=== PATIENT | female | born 1960 | race Caucasian/White ===

== ENCOUNTER 2017-01-20 14:34 | Inpatient (IN) | payer MEDICARE, OTHER ==
--- NOTE | ~2017-01-20 | CN ---
Consultation Report [facility] [address] [place]. [address] NAME: LILLI COVINGTON : 58 STATUS : ADM IN [facility]#: [id number] AGE: 56 ADM/REG DATE : 01/20/17 MR#: [id number] REPORT SERV DATE: 01/22/17 DICTATED BY: DATE: REPORT STATUS : Draft TRANSCRIBED BY: MODL DATE: 01/22/17 NEUROLOGY CONSULTATION DATE OF CONSULTATION: 01/22/2017 REASON FOR CONSULT: Encephalopathy. HISTORY OF PRESENT ILLNESS: This is a 56-year-old female who presented to [facility] as a transfer from outside hospital on 01/20/2017. The patient was initially noted to have elevated potassium level, was status post dialysis, as well as the patient initially was noted to be unresponsive. The patient on 01/21/2017 was noted to have improved level of arousal, but was noted to have waxing and waning level of interaction with nursing staff. The patient otherwise denies any focal weakness, numbness, or dysarthria. No reports of recent illness, fever, chills. Nausea, vomiting were otherwise reported. The patient does complain of shortness of breath, which was the reason for the patient's evaluation at outside hospital. Otherwise, no recent change in medication was noted. The patient denies IV drug abuse in the past. The patient does have a history of end-stage renal disease, and is on hemodialysis. REVIEW OF SYSTEMS: Negative except for those mentioned in the HPI. The patient does have history of end-stage renal disease, COPD, type 2 diabetes, obesity, CHF as well as hypertension with the patient noted to have current tobacco usage, but denies alcohol usage and denies IV drug usage. MEDICATIONS: The patient's home medication consist of amlodipine, Lyrica, vitamin D, Tylenol, carvedilol, calcium acetate, citalopram as well as Tamera-Mathieu. ALLERGIES: THE PATIENT REPORTS ALLERGY TO PENICILLIN. FAMILY HISTORY: No significant reports of family history was noted by the patient. PHYSICAL EXAMINATION: VITAL SIGNS: T-max of 98.6, heart rate of 65 to 140, respirations of 10 to 27, and blood pressure of 100 to 186 over 53 to 83. GENERAL: The patient is well developed, well nourished, in no acute distress. CARDIOVASCULAR: Mildly tachycardic. No carotid bruits were otherwise auscultated PULMONARY: Clear to auscultation bilaterally. NEUROLOGICAL: Generally, the patient is alert, oriented to person, place, not to year or month. Decreased attention span was noted at the time of evaluation. The patient was noted to have a minimal verbal response, was otherwise noted to follow most of the simple commands and some of two-step commands. At the time of evaluation, mild dysarthria was noted. No clear aphasia was discerned during the evaluation. Cranial nerves 2 through 12, pupils equal, round, and reactive to light. Horizontal eye movement was noted to be intact with intact [id number] response with equal symmetrical facial sensation, symmetrical facial Consultation Report [place] [id number] [facility] [place]. [address] NAME: LILLI COVINGTON : 58 STATUS : ADM IN [facility]#: [id number] AGE: 56 ADM/REG DATE : 01/20/17 MR#: [id number] REPORT SERV DATE: 01/22/17 DICTATED BY: DATE: REPORT STATUS : Draft TRANSCRIBED BY: MODL DATE: 01/22/17 expression. Midline tongue. Normal palatal movement was noted with mild decreased hearing in bilateral ears. The patient does have 4/5 bilateral upper and lower extremity strength at the time of evaluation, with question of mild asterixis and myoclonus at the time of evaluation. Gait and cerebellar examination was unable to be evaluated secondary to confusion as well as difficulty following complex commands. LABORATORY DATA: The patient's laboratory studies demonstrated white blood cell count of 12.7, hemoglobin of 12.6, hematocrit of 40.1, platelet count of 237. Chemistry panel: Sodium 141, potassium 3.9, chloride 102, bicarb of 28, BUN of 34, creatinine of 5.31, glucose of 98, calcium of 8.6, magnesium of 2.2. Serum TSH was 0.901. The patient was noted to have serum free T4 of 0.56, hemoglobin A1c of 10.7. No neuroimaging was otherwise available at the time of evaluation. IMPRESSION: Encephalopathy with waxing and waning in level of interaction with others. The patient is able to follow most of the simple commands, but was noted to have dysarthria as well as disorientation, decreased attention span, and difficulties with complex commands. The patient was noted to have heart valve vegetation in the mitral valve extending to the atrium on echocardiogram concerning for vegetation versus thrombus. We will obtain blood cultures x2. We will check MRI of the brain without contrast as well as other laboratory studies. We will start the patient on aspirin 325 mg p.o. daily and we will obtain Cardiology consults. We will defer antibiotics trial and management to Critical Care. RECOMMENDATION: 1. Aspirin 325 mg p.o. daily. 2. Blood cultures x2. 3. Ammonia, vitamin B12, folate, procalcitonin level with morning labs. 4. MRI of the brain without contrast for altered mental status. 5. Cardiology consult. 6. Consider antibiotics. CCH/MODL Olu Lamar MD / [id number] CC: Luke Becker DO
--- NOTE | ~2017-01-20 | CN ---
Consultation Report [facility] [address] [place]. [address] NAME: LILLI COVINGTON : 58 STATUS : ADM IN PAT#: [id number] AGE: 56 ADM/REG DATE : 01/20/17 MR#: [id number] REPORT SERV DATE: 01/21/17 DICTATED BY: JAY HANSEN DATE: 01/20/17 REPORT STATUS : Draft TRANSCRIBED BY: MODL DATE: 01/20/17 NEPHROLOGY CONSULTATION NOTE DATE OF CONSULTATION: HISTORY OF PRESENT ILLNESS: Ms. Covington is a 56-year-old, white female, with end-stage renal disease, from [place], [place], Dr. Vincent's patient from the [facility] there, presented to [facility] Emergency Room with a potassium of 9.2, complaining of shortness of breath and abnormal EKG. She was placed on CPAP and later intubated and transferred here for urgent hemodialysis. PAST MEDICAL HISTORY: Hypertension, secondary hyperparathyroid disease, anemia of chronic kidney disease, chronic diarrhea, diabetes mellitus type 2 with multiorgan involvement, left arm AV fistula, COPD on home O2 as best I can tell. She has had a left big toe amputation in the past. I am not sure if this was infection, trauma, or peripheral vascular disease. She is intubated cannot give me social history, family history. ALLERGIES: SHE IS ALLERGIC TO PENICILLIN PER RECORDS. MEDICATIONS: At home are obtained from a clinic pack. They listed amlodipine, Lyrica, vitamin D, acetaminophen, carvedilol, calcium acetate, citalopram, and Tamera-Mathieu. PHYSICAL EXAMINATION: GENERAL: The patient is seen on dialysis, intubated, ventilated, and sedated. VITAL SIGNS: Blood pressure 100/54, heart rate 116, respirations 14, and afebrile. Oral intubation, sedated. LUNGS: Clear bilaterally. CARDIOVASCULAR EXAM: Without murmur, gallops, or rubs. ABDOMEN: Soft, benign. Bowel sounds are present. EXTREMITIES: 1+ edema diffusely, missing tip of her left big toe. Nor skin rash. No open ulcers, no lymphadenopathy appreciated. Otherwise stable vital signs at present. LABS: Pending here today. The lab work done at [facility] shows a potassium of 9.2 at 11 o'clock and 8.4 at 1 p.m. Blood sugar was 365 there, BUN 106, creatinine 9.2 with a hemoglobin 11.3. Blood gas revealed a pH of 7.16, pCO2 67, pO2 49, 36% FiO2. ASSESSMENT: 1. End-stage renal disease, presented with volume overload. Suspect patient noncompliant with the last potassium at the clinic was 7.8, but cannot rule out access malfunction or medication problems. High blood sugars can also cause high potassium, and she may not be taking her insulin correctly. I cannot ask these questions as she is sedated and intubated. May well need a fistulogram for the high potassium evaluation to see if she is actually under dialyzed as her BUN is over 100, creatinine was 9 and had 6 kg of volume overload. Consultation Report [address] [place]. [address] NAME: LILLI COVINGTON : 58 STATUS : ADM IN [facility]#: [id number] AGE: 56 ADM/REG DATE : 01/20/17 MR#: [id number] REPORT SERV DATE: 01/21/17 DICTATED BY: JAY HANSEN DATE: 01/20/17 REPORT STATUS : Draft TRANSCRIBED BY: COMFORT DATE: 01/20/17 2. Diabetes mellitus type 2. Poorly controlled blood sugar over 300, probably dietary non discretion. 3. Chronic obstructive pulmonary disease on home O2. CO2 retention, volume overloaded, and history of tobacco use in the past. Maybe still currently smoking. 4. Worry about cardiomyopathy. She has multiple risk factors. 5. Anemia of chronic kidney disease. 6. Hypertension. 7. Peripheral vascular disease, left big toe missing. PLAN: Urgent hemodialysis. The patient is actually on dialysis currently through a left upper arm AV fistula. Revisit high potassium in a.m. and plan to repeat dialysis tomorrow. Control the diabetes, educate as far as diet, and we will evaluate access as needed. Thank you for consultation. MIKAEL/COMFORT Jay Hansen M.D. / [id number] CC: DO ALEXANDER Duong MD
--- NOTE | ~2017-01-20 | CN ---
Consultation Report [facility] [address] [place]. [address] NAME: LILLI COVINGTON : 58 STATUS : ADM IN [facility]#: [id number] AGE: 56 ADM/REG DATE : 01/20/17 MR#: [id number] REPORT SERV DATE: 01/23/17 DICTATED BY: BALJIT MURCIA DATE: 01/23/17 REPORT STATUS : Draft TRANSCRIBED BY: MODL DATE: 01/23/17 INFECTIOUS DISEASE CONSULT DATE OF CONSULTATION: REFERRING PHYSICIAN: Dr. Esparza. REASON FOR CONSULT: Possible endocarditis. HISTORY OF PRESENT ILLNESS: 56-year-old lady with history of COPD, on home oxygen; end-stage renal disease, on hemodialysis through a left arm AV fistula; diabetes; hypertension; CHF, who was transferred from [facility] for severe hyperkalemia with EKG changes, hypercapnia, hypoxemia, and acidosis. The patient is unable to provide any information. The did not answer two different phone numbers, so the only thing I got is from the chart. Apparently, she presented to the ER in [place], [place] for dyspnea. No other details are available. She was found to have a potassium of 9.2. ABGs with pH of 7.16, pCO2 of 67, PO2 of 49. Otherwise, the lactic acid was 0.6. BNP was 2300. Other labs; WBC 12, hemoglobin 11, platelets 260. ALT 64, AST 52. Procalcitonin not elevated. She was initially given Solu-Medrol. Was given medications for hyperkalemia, but eventually it was decided to transfer her to [facility], so she was intubated prior to that. She was brought to [facility]. Here PICC line was put. She was dialyzed on 01/20/2017, 01/21/2017, and 01/22/2017. Yesterday, she was extubated. An echocardiogram was done because she had atrial fibrillation with rapid ventricular rate and that showed 1 x 0.5 cm mobile vegetation on the posterior leaflet of the mitral valve. With that finding, blood cultures were collected and she was started on vancomycin and cefepime. Today, an ID consult was requested. Echocardiogram showed a good left ventricular ejection fraction, just trivial mitral regurgitation. The patient is unable to provide any information, but since being extubated she has been awake, but apparently she does not talk much and her mental status waxes and wanes. She was seen by Neurology. MRI was attempted, but could not be done. Ammonia is high at 67 and a sudden EEG was done as well. Chest x-ray has been showing some increased interstitial markings may be enlarged heart and opacity at the left base. She has been afebrile except for one time a low temp of 100, blood pressure has been running high. She is on 2 L of oxygen. According to the nurse, she has no vomiting, no bowel movement, does not really make urine, no coughing or very little coughing. She is not really cooperative. In order to get medications, an NG tube was put in because she failed a swallowing study. PAST MEDICAL HISTORY: As I mentioned above plus the chart mentions prior amputation of left first toe, some form of ear surgery, and chronic diarrhea. SOCIAL HISTORY: Again, according to the chart, she is . She is a smoker. ALLERGIES: PENICILLIN IS LISTED. Consultation Report [address] [place]. [address] NAME: LILLI COVINGTON : 58 STATUS : ADM IN [facility]#: [id number] AGE: 56 ADM/REG DATE : 01/20/17 MR#: [id number] REPORT SERV DATE: 01/23/17 DICTATED BY: BALJIT MURCIA DATE: 01/23/17 REPORT STATUS : Draft TRANSCRIBED BY: COMFORT DATE: 01/23/17 MEDICATIONS ON ADMISSION: I did not see any antibiotics listed. PHYSICAL EXAMINATION: GENERAL: On exam, she is awake. She follows commands. She could tell me her name. She would not open her mouth to examine it. HEENT: Sclerae seem to be white. LUNGS: Poor inspiratory effort, but no wheezes, rhonchi, or rales. HEART: Regular rhythm with a soft systolic murmur at both sternal borders. ABDOMEN: Compressible. Seems nontender to palpation. SKIN: With mild erythema over her buttocks, but no wound. She has some scars over the left inner buttock and towards the mid upper spine area or back area. She moves all extremities. She has tiny scabs over her lower legs and arms. She has a left arm AV fistula, which looks ectatic. She has a right arm PICC line. LAB WORK: I called [facility] and they tell me no cultures were done there. Blood cultures done here yesterday are negative so far. WBC 8. Procalcitonin 0.12. Ammonia 67. ASSESSMENT AND PLAN: 1. Mitral valve vegetation, described as mobile and 1 x 0.5 cm. 2. She is encephalopathic and she has high ammonia. She is unable to help with the information. I tried to call the , but no answer. 3. She was admitted with hyperkalemia, hypercapnia, acidosis, and hypoxemia. 4. End-stage renal disease, on hemodialysis. 5. Per chart, she has a history of chronic obstructive pulmonary disease, on home oxygen. The question for ID is whether she has endocarditis. On one hand, she clearly is at risk for it being a dialysis patient. She has all these small scabs all over her extremities of unclear etiology. On the other hand, she is really afebrile. Procalcitonin is not elevated. Blood cultures done yesterday so far negative. At this point, we will follow up cultures. She was started on empiric vancomycin and cefepime. We will try to reach out to the family again later. She is being investigated for the encephalopathy. PC/MODL Baljit Murcia M.D. / [id number] CC: Luke Becker DO
--- NOTE | ~2017-01-20 | DS ---
Discharge Summary [facility] [address] [facility] [place]. [address] NAME: LILLI COVINGTON : 58 STATUS : DIS IN PAT#: [id number] AGE: 56 ADM/REG DATE : 01/20/17 MR#: [id number] REPORT SERV DATE: 01/30/17 DICTATED BY: AMANDO CRISTINA DATE: 01/29/17 REPORT STATUS : Draft TRANSCRIBED BY: MODL DATE: 01/29/17 ADMISSION DATE: 01/20/2017 DISCHARGE DATE: 01/29/2017 DISCHARGE DIAGNOSES: Include: 1. Acute hypoxic respiratory failure, resolved. 2. Hyperkalemia, resolved, in the setting of end-stage renal disease with volume overload and pulmonary edema. 3. Mitral valve vegetation. 4. Diabetes type 2, uncontrolled. Most recent hemoglobin A1c 10.7. 5. Seizure, status epilepticus. 6. One episode of atrial fibrillation, now resumed sinus rhythm. 7. Hypertension. 8. Encephalopathy, metabolic, that has resolved. 9. Hyponatremia, resolved. DISCHARGE MEDICATIONS: Aspirin 81 mg daily, Coreg 12.5 mg p.o. twice a day, Vimpat 100 mg p.o. twice a day, Tamera-Mathieu tablet daily, Dilantin 100 mg three times a day, Tylenol 500 mg p.r.n., Norvasc 10 mg daily, Lyrica 75 mg daily, Celexa 20 mg daily, vitamin D 70478 units weekly, PhosLo 667 mg daily, Zofran p.r.n., and Lantus insulin 20 units subcutaneously twice a day. HISTORY OF PRESENT ILLNESS: This is a pleasant 56-year-old white female, who was originally transferred from [facility] Emergency Room as the patient was found to be severely hyperkalemic, acidotic, with respiratory failure. Please see the initial H and P of Dr. Luke Becker as the patient was admitted to the [facility] here at [facility]. Please also see the interim discharge summary of grain trader, Dr. Evangelina Esparza, as this discharge summary will cover the dates of 01/25/2017 until 01/29/2017. CONSULTANTS DURING THIS ADMISSION: Included Neurology, Dr. Rosalia Lamar; Cardiology, Dr. Kimani Rivera; Infectious Disease, Dr. Baljit Davey. PROCEDURES AND IMAGING DURING THIS ADMISSION: Include a CT of the brain on 01/23/2017 showing [id number] diffuse cerebral involutional changes, suspected small old infarct, left basal ganglia. An echocardiogram performed on 01/22/2017 showing an ejection fraction of 55%. Mild LVH. Normal right ventricular chamber size and systolic function. No significant valvular regurgitation or stenosis, but a hypermobile echodensity, posterior mitral leaflet P2 scallop consistent with valvular vegetation. A transesophageal echocardiogram performed on 01/28/2017 showing ejection fraction of 55%. A 1.5-cm independently mobile echodensity seen on the posterior mitral anulus adjacent to the P2 and P3 segments, very echodense, possibly calcified, likely representing an old chronic finding. No significant valvular regurgitation and intact interatrial septum. Discharge Summary [address] [place]. [address] NAME: LILLI COVINGTON : 58 STATUS : DIS IN [facility]#: [id number] AGE: 56 ADM/REG DATE : 01/20/17 MR#: [id number] REPORT SERV DATE: 01/30/17 DICTATED BY: AMANDO CRISTINA DATE: 01/29/17 REPORT STATUS : Draft TRANSCRIBED BY: COMFORT DATE: 01/29/17 An MRI of the brain performed on 01/23/2017 showing no acute CVA or other acute intracranial pathology. Old CVA, left superior posterior parietal watershed zone. Moderate diffuse cerebral involutional changes. HOSPITAL COURSE: Beginning on 01/25/2017, the patient had been transferred out of the intensive care unit. I began seeing her on 01/25/2017. She was feeling some better and her mental status had began to improve. She still had an NG tube with tube feeding, but given the improvement in her encephalopathy and mental status, her NG tube was removed and her diet was slowly advanced, which she tolerated well. She continued on her IV antibiotics. She was seen by Speech Therapy, Physical Therapy, and Occupational Therapy. Nephrology continued her dialysis treatments on Friday, Friday, and Friday. A determination was made to perform the above-described SERVANDO to further assess the mitral valve, which was done, and after discussions with Cardiology and Infectious Disease, they decided on a course of outpatient IV antibiotics for 5 weeks with echocardiogram at week 6 to reassess the mitral valve. She was originally planned to go to rehab at discharge, but improved and requested herself to go home with home health and home physical therapy. This was set up for the patient and currently will be discharging home with home health, physical therapy, and occupational therapy to resume her outpatient dialysis treatments on Friday, Friday, and Friday. Given her one episode of AFib during this admission, I discussed the case with Dr. Rivera. He does not wish to pursue anticoagulation other than an 81-mg aspirin daily. She will follow up with Cardiology in 6 weeks in the [facility]. The patient was discharged with the above medications and followup plan. She is in agreement with this plan going forward. Please note, greater than 30 minutes were spent on this discharge for medication teaching, followup planning, and further disposition. I appreciate all the consultants' help on this patient's hospital admission as well. DICTATED BY: Amando Cristina NP CSC/MODL Amando Cristina NP / [id number] CC: Barrett Napier MD
--- NOTE | ~2017-01-20 | IDS ---
Interim Discharge Summary [facility] [address] [place]. [address] NAME: LILLI COVINGTON : 58 STATUS : ADM IN [facility]#: [id number] AGE: 56 ADM/REG DATE : 01/20/17 MR#: [id number] REPORT SERV DATE: 01/24/17 DICTATED BY: EAVNGELINA GROVE DATE: 01/24/17 REPORT STATUS : Draft TRANSCRIBED BY: MODL DATE: 01/24/17 ADMISSION DATE: 01/20/2017 DISCHARGE DATE: BRIEF HISTORY OF PRESENT ILLNESS: Ms. Covington is a 56-year-old lady with end-stage renal disease from [place], who is followed by Dr. Bardales at the [facility] up there. She presented to the emergency room at [facility] complaining of shortness of breath and was found to have an abnormal EKG and a potassium level of 9.2. She was ultimately intubated and transferred to our facility for higher level of care. Please see Dr. Becker's detailed H and P from the date of her admission as well as Dr. Maciel's consult note from the same date. She was dialyzed through her existing left arm fistula and was dialyzed again the next morning as well. She was extubated later in the afternoon after correction of her volume overload and hyperkalemia. Her pulmonary edema was likely the source of her respiratory failure and she had significant improvement in her respiratory status and tolerated extubation after 2 dialysis sessions with this considerable volume removal. Other problems during this admission have included poorly-controlled diabetes mellitus requiring insulin therapy, atrial fibrillation requiring amiodarone, anemia, which is a chronic issue. Other past medical history includes hypertension, peripheral vascular disease, major depression, chronic neuropathy secondary to uncontrolled diabetes, GERD and COPD requiring home oxygen. She was found on 01/22/2017 to have a vegetation on the P2 subsegment of the mitral valve and was seen by Dr. Davey as well as Dr. Rivera. She was started on broad-spectrum antibiotics and cultures were collected. Of note, her procalcitonin level has been unremarkable and cultures have been negative to date. She also developed what was initially felt to be encephalopathy secondary to possible septic emboli to her brain; however, after being seen by Dr. Lamar and undergoing MRI of the brain, there was no evidence of embolic phenomenon. She also had an EEG, which was markedly abnormal and she was loaded with antiepileptics by Dr. Lamar who continues to follow her. She was started on scheduled Ativan until satisfactory loading with antiepileptic drugs could be completed. She has not had anymore recurrence of her paroxysmal atrial fibrillation. Cardiology feels this is likely secondary to treatment of her metabolic disturbances and infection. She was transitioned from IV amiodarone to p.o. on the . She is scheduled for lumbar puncture this afternoon as part of ongoing workup for encephalopathy, and she will be moving to a monitored bed for ongoing care and physical therapy. She has morning labs ordered for tomorrow, is a full code, and her is functioning as her medical decision maker, his name is David Covington, cell phone #[phone]. Hospitalist navigator has been notified of her transfer. Please call with questions. DAWN/COMFORT Evangelina Grove MD / [id number] Interim Discharge Summary [address] [address] NAME: LILLI COVINGTON : 58 STATUS : ADM IN [facility]#: [id number] AGE: 56 ADM/REG DATE : 01/20/17 MR#: [id number] REPORT SERV DATE: 01/24/17 DICTATED BY: EVANGELINA GROVE DATE: 01/24/17 REPORT STATUS : Draft TRANSCRIBED BY: COMFORT DATE: 01/24/17 CC: Luke Becker DO
--- NOTE | ~2017-01-20 | CN ---
Consultation Report [facility] [address] [place]. [address] NAME: LILLI COVINGTON : 58 STATUS : ADM IN [facility]#: [id number] AGE: 56 ADM/REG DATE : 01/20/17 MR#: [id number] REPORT SERV DATE: 01/23/17 DICTATED BY: BOGDAN RIVERA DATE: 01/22/17 REPORT STATUS : Draft TRANSCRIBED BY: MODL DATE: 01/22/17 CARDIOLOGY CONSULT NOTE DATE OF CONSULTATION: 01/22/2017 REASON FOR CONSULTATION: Altered mental status, atrial fibrillation with rapid ventricular response, and mitral valve vegetation on transthoracic echocardiogram. HISTORY OF PRESENT ILLNESS: Ms. Covington is a 56-year-old woman with a possible previous history of congestive heart failure, not otherwise specified. The patient apparently has no other known cardiovascular history, although she is currently oriented only to person and is unable to provide a useful history. The patient apparently was transferred from an outside facility. She is on chronic hemodialysis due to end-stage renal disease. She receives her nephrology care in [place], [place]. The patient apparently was brought to an emergency room in [place] with altered mental status. The patient was found to be in hypoxic, hypercarbic respiratory failure. She required endotracheal intubation for airway protection and stabilization prior to transfer to [facility]. The patient was found to be severely hyperkalemic, with a serum potassium initially of approximately 9. The patient was transferred to [facility] for emergency hemodialysis and higher level of care. At this time, the patient has been extubated. The patient remains quite confused, and has waxing and waning mental status according to the nursing staff. At this time, the patient is oriented only to person. She is unable to name the city she is presently in, nor the year. The patient is however able to follow simple commands. PAST MEDICAL HISTORY: 1. End-stage renal disease, on hemodialysis. 2. COPD. 3. Type 2 diabetes. 4. History of obesity. 5. History of tobacco abuse. 6. Hypertension. 7. Congestive heart failure, not otherwise specified. PAST SURGICAL HISTORY: 1. 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 2. Ear surgery. 3. AV fistula in left arm. FAMILY HISTORY: Unknown. SOCIAL HISTORY: The patient has a heavy smoking history. She continues to smoke Consultation Report [facility] [address] [place]. [address] NAME: LILLI COVINGTON : 58 STATUS : ADM IN PAT#: [id number] AGE: 56 ADM/REG DATE : 01/20/17 MR#: [id number] REPORT SERV DATE: 01/23/17 DICTATED BY: BOGDAN RIVERA DATE: 01/22/17 REPORT STATUS : Draft TRANSCRIBED BY: MODL DATE: 01/22/17 approximately 2 packs per day according to medical records. The patient apparently has previously denied alcohol or drug use. The patient is reportedly . ALLERGIES: THE PATIENT HAS NO KNOWN MEDICATION ALLERGIES. HOME MEDICATIONS: This list may be incomplete. 1. Acetaminophen 500 mg p.o. as needed for pain/fever. 2. Norvasc 10 mg p.o. daily. 3. Tamera-Mathieu vitamins-schedule unknown. 4. PhosLo 667 mg tablets-schedule unknown. 5. Carvedilol 12.5 mg p.o. twice daily. 6. Celexa 20 mg p.o. daily. 7. Vitamin D 50,000 units weekly or as prescribed. 8. Lyrica 75 mg-schedule unknown. REVIEW OF SYSTEMS: A meaningful review of systems could not be performed. PHYSICAL EXAMINATION: VITAL SIGNS: Temperature is 97.0 degrees Fahrenheit, maximum temperature is 100.4 degrees Fahrenheit, blood pressure is 182/75 mmHg, heart rate is 74 beats per minute and regular, respirations 15, and oxygen saturation is 94% on a 2 L nasal cannula. CONSTITUTIONAL: The patient is a chronically ill-appearing, 56-year-old woman who appears considerably older than her stated age. The patient appears disheveled. EYES: PERRL, EOMI, clear conjunctiva. HEAD/MNT: Poor dentition. Otherwise normal cranium, atraumatic with moist mucous membranes and normal hard and soft palate. NECK: Supple with no obvious thyromegaly or lymphadenopathy CARDIOVASCULAR: There is a regular rhythm with a normal S1 and a physiologically split second heart sound. There is a grade 1/6 early peaking systolic murmur noted at the right upper sternal border consistent with a benign flow murmur. The jugular venous pressure is difficult to estimate, but currently appears to be grossly normal. PULMONARY: There is globally decreased air movement. There are rales noted in the lung bases bilaterally which extend approximately jail up the lung ching. There is a prolonged expiratory phase. No dullness to percussion is noted at this time. ABDOMINAL: Soft, non-tender, non-distended with no hepatosplenomegaly noted. EXTREMITIES: There are no clear stigmata of endocarditis. No clubbing, cyanosis, or edema. The patient is noted to have an amputation of her right great toe. MUSCULOSKELETAL: Grossly normal strength and range of motion in all extremities INTEGUMENTARY: The patient has a decubitus ulcer in the sacral location which is currently dressed. There are multiple apparently excoriated lesions, with multiple crusted lesions noted over a vein in the patient's right arm. While these may be due to lab draws, it is somewhat suspicious for track younger. Again, there are no obvious Osler nodes, Janeway lesions, or other stigmata of infective endocarditis. NEURO/PSYC: The patient is moving all extremities, though she has generalized fatigue, and Consultation Report [address] [address] NAME: LILLI COVINGTON : 58 STATUS : ADM IN [facility]#: [id number] AGE: 56 ADM/REG DATE : 01/20/17 MR#: [id number] REPORT SERV DATE: 01/23/17 DICTATED BY: BOGDAN RIVERA DATE: 01/22/17 REPORT STATUS : Draft TRANSCRIBED BY: COMFORT DATE: 01/22/17 appears somewhat ataxic. No other focal neurologic deficits are noted on brief exam. DIAGNOSTIC DATA: 12-lead EKG: The patient's 12-lead EKG from 1756 hours on 01/21/2017 shows atrial fibrillation with a rapid ventricular response and a ventricular rate of 128 beats per minute. There is T-wave peaking and voltage criteria for left ventricular hypertrophy. Otherwise, unremarkable tracing. Telemetry: The patient's foot drill operator currently shows normal sinus rhythm with a rate of approximately 75 beats per minute. CHEST X-RAY: The patient's admission chest x-ray shows moderate pulmonary edema with small left-sided pleural effusion. LABORATORY DATA: The patient's admission labs apparently had a potassium level of around 9 with pH of approximately 7.15, pCO2 of around 70, and PaO2 also around 70. Most recent labs show a white blood cell count of 12.7, hemoglobin 12.6, hematocrit 40, and platelets 237. Electrolytes show a sodium of 141, potassium 3.9, chloride is 102, CO2 is 28, BUN 34, creatinine is 5.3, glucose is 98, phosphorus is 6.9, and magnesium 2.2. TSH is 0.91. TRANSTHORACIC ECHOCARDIOGRAM: A transthoracic echocardiogram performed 01/22/2017 shows normal left ventricular systolic function with a left ventricular ejection fraction estimated at 55%. There is mild concentric left ventricular hypertrophy reported. Right ventricular function and chamber size appeared normal. A catheter is noted in the right atrium. There is a hypermobile echodensity extending from the posterior mitral leaflet from the P2 scallop and into the left atrium consistent with a valvular vegetation. There is no significant mitral regurgitation associated with this. No other significant valvular heart disease is reported. ASSESSMENT AND PLAN: 1. 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 The patient has been started on vancomycin. Consider infectious disease consult to assist in diagnosis and treatment. The patient has no evidence of AV block at this time on foot drill operator or her 12-lead EKG. It is not clear that transesophageal echocardiography would add much to the patient's workup. The vegetation appears of moderate size, and is approximately 1 cm x 0.5 cm. Would recommend antimicrobial therapy as per the recommendations of the Infectious Disease Service with no further cardiac workup at this time, and unless there is clear evidence of embolic phenomenon on an MRI scan of the brain. 2. Atrial fibrillation: This is most likely precipitated by the patient's acute respiratory failure. The patient is now in normal sinus rhythm. She is on an IV amiodarone drip, which we will continue until the patient is able to take oral medications. We will consider oral anticoagulation depending on the results of the patient's MRI scan of the brain. We will discuss with the primary service. 3. Volume overload: The patient has normal left ventricular systolic function. We will continue volume removal as tolerated with hemodialysis. If the patient's mental status Consultation Report [place] [id number] [facility] [address] NAME: LILLI COVINGTON : 58 STATUS : ADM IN [facility]#: [id number] AGE: 56 ADM/REG DATE : 01/20/17 MR#: [id number] REPORT SERV DATE: 01/23/17 DICTATED BY: BOGDAN RIVERA DATE: 01/22/17 REPORT STATUS : Draft TRANSCRIBED BY: COMFORT DATE: 01/22/17 improves, we will try to determine whether the patient has had a previous cardiovascular workup. 4. Altered mental status: An MRI scan of the brain is pending. Should the patient have evidence of embolic stroke, it may be necessary to pursue transesophageal echocardiography to further characterize the mitral valve lesion. We will make further recommendations following review of the patient's MRI scan. Thank you for allowing me to participate in the care of Ms. Covington. The Cardiology Service will continue to follow the patient during this hospitalization. JC/COMFORT Bogdan Rivera MD / [id number] CC: Luek Becker DO
--- NOTE | ~2017-01-20 | EEG ---
Electroencephalogram [place] [address] [place]. [address] NAME: LILLI COVINGTON : 58 STATUS : ADM IN PAT#: [id number] AGE: 56 ADM/REG DATE : 01/20/17 MR#: [id number] REPORT SERV DATE: 01/23/17 DICTATED BY: DATE: REPORT STATUS : Draft TRANSCRIBED BY: MODL DATE: 01/23/17 NEUROLOGY EEG REPORT. CLINICAL INDICATION: Encephalopathy. DESCRIPTION: This EEG was performed using 10/20 electrode placement system. During the EEG study, patient was noted to have persistent epileptiform discharges throughout the EEG study with muscle artifact concerning for possible status epilepticus. Photic stimulation was performed. No clear driving response was seen. Hyperventilation was not performed secondary to the patient's medical condition and mental status. The patient remains in the alert and awake state during the entire EEG evaluation. INTERPRETATION: This EEG study obtained during awake state may be considered abnormal secondary to persistent epileptiform discharges seen throughout the EEG study, concerning for status epilepticus. Clinical correlation is recommended. [facility]/MODCali Olu Lamar MD / [id number] CC: Luke Becker DO
--- NOTE | ~2017-01-20 | TEE ---
Transesophageal Echocardiogram [facility] [address]. [address] NAME: LILLI COVINGTON : 58 STATUS : ADM IN PAT#: [id number] AGE: 56 ADM/REG DATE : 01/20/17 MR#: [id number] REPORT SERV DATE: 01/29/17 DICTATED BY: KEEGAN IQBAL DATE: 01/28/17 REPORT STATUS : Draft TRANSCRIBED BY: MODCali DATE: 01/28/17 REQUESTING PROVIDER: Mariusz Escobar M.D. INDICATION: Abnormal echocardiogram with mitral valve vegetation. SERVANDO requested for further evaluation. Informed consent was obtained, signed, and on the chart prior to proceeding. A time-out was performed. Sedation was per Anesthesia, and esophageal intubation was without difficulty. TECH: TD. The overall quality of the study was good. FINDINGS: VALVES: 1. The mitral valve morphology was normal. The mitral leaflets appear normal and fully mobile. There was no mitral regurgitation. There is a 1.5 cm independently mobile echodensity seen with primary attachment at the mitral anulus adjacent to the P2-P3 segments. Again, this appears to be a very echodense and likely calcified, possibly old - chronic. 2. The aortic valve morphology was normal and trileaflet. The aortic leaflets were fully mobile. There were no vegetations. There was no aortic regurgitation. 3. The pulmonic valve morphology was normal. There were no vegetations. Pulmonic leaflets were fully mobile. There was no pulmonic regurgitation. 4. The tricuspid valve morphology was normal with fully mobile leaflets. There were no vegetations. There was trace tricuspid regurgitation. CHAMBERS: 1. The left atrium was grossly normal in size. There was no mass or thrombus seen. 2. The left ventricle was normal in size. The visually estimated LVEF of 55%. There were no regional wall motion abnormalities. 3. The right atrium was mildly enlarged. Superior and inferior vena cava appeared normal. There was no mass or thrombus seen. 4. The right ventricle appears grossly in normal size and systolic function. OTHER: The interatrial septum was examined with multiple angulations and appears intact by visual inspection with no evidence of interatrial shunt seen by color Doppler. There was no pericardial effusion. The descending thoracic aorta was not adequately visualized. COMPLICATIONS: None. CONCLUSION: 1. 1.5 CM INDEPENDENTLY MOBILE ECHODENSITY SEEN ON THE POSTERIOR MITRAL ANULUS ADJACENT TO THE P2-P3 SEGMENTS. THIS IS VERY ECHODENSE AND POSSIBLY CALCIFIED LIKELY REPRESENTING AN OLD-CHRONIC FINDING. 2. NO SIGNIFICANT VALVULAR REGURGITATION. 3. INTACT INTERATRIAL SEPTUM. Transesophageal Echocardiogram [address] [place]. [address] NAME: LILLI COVINGTON : 58 STATUS : ADM IN [facility]#: [id number] AGE: 56 ADM/REG DATE : 01/20/17 MR#: [id number] REPORT SERV DATE: 01/29/17 DICTATED BY: KEEGAN IQBAL. DATE: 01/28/17 REPORT STATUS : Draft TRANSCRIBED BY: MODCali DATE: 01/28/17 ALAYNA/COMFORT Keegan Iqbal M.D. / [id number] CC: Barrett Napier MD
--- NOTE | ~2017-01-20 | EEG ---
Electroencephalogram [place] [id number] [facility] [place] [address] NAME: LILLI COVINGTON : 58 STATUS : ADM IN PAT#: [id number] AGE: 56 ADM/REG DATE : 01/20/17 MR#: [id number] REPORT SERV DATE: 01/24/17 DICTATED BY: DATE: REPORT STATUS : Draft TRANSCRIBED BY: MODL DATE: 01/24/17 CLINICAL INDICATION: Status epilepticus. DESCRIPTION: This EEG was performed using 10/20 electrode placement system. During the EEG study, symmetric background activity was noted with predominant occipital rhythm of roughly 7 hertz. The patient was noted to have episodes of triphasic waves as well as phase reversals seen mostly in the T3 as well as T6 electrodes. The patient achieved drowsy state. Photic stimulation was performed. No clear driving response was seen. Hyperventilation was not performed secondary to the patient's underlying medical condition. The patient's EEG today appeared to have improved compared to the EEG performed on 01/23/2017 which shows the predominantly electrographic seizures. No clear electrographic seizure was noted during today's EEG. INTERPRETATION: This EEG study was obtained during awake and drowsy state may be considered abnormal secondary to presence of frequent triphasic wave as well as the phase reversal in T3 and T6 electrodes in bilateral temporal area concerning for possible underlying structure abnormality versus seizure focus. No clear electrographic seizure was seen during today's EEG evaluation. Clinical correlation is recommended. [facility]/COMFORT Olu Lamar MD / [id number] CC: Luke Becker DO
--- NOTE | ~2017-01-20 | HP ---
History And Physical [place] [address] [place]. [address] NAME: LILLI COVINGTON : 58 STATUS : ADM IN [facility]#: [id number] AGE: 56 ADM/REG DATE : 01/20/17 MR#: [id number] REPORT SERV DATE: 01/20/17 DICTATED BY: LUKE BECKER DATE: 01/20/17 REPORT STATUS : Draft TRANSCRIBED BY: MODL DATE: 01/20/17 DATE OF ADMISSION: 01/20/2017 HISTORY OF PRESENT ILLNESS: 56-year-old white female, transferred from [facility] Emergency Room in [place], [place], for ongoing higher level of care. The patient was seen there today because of shortness of breath. She was found to have hyperkalemia with a potassium of 9.2 with EKG changes showing peaked T-waves and a widened QRS. She also was found to be acidotic with an abnormal arterial blood gas with a pH of 7.16, pCO2 of 67, and pO2 of 49. She was placed on BiPAP for her respiratory status, and she was given insulin, sodium bicarb, calcium, albuterol, and Kayexalate to treat her potassium. They called us to transfer the patient to get dialysis. After questioning about the status of her airway, the ER doctor did decide, after talking with him, that she needed to be intubated for transport. She was intubated with what looks like etomidate and vecuronium. She also was given some aerosol treatments and Solu-Medrol in the ER. Apparently, she does have a diagnosis of COPD and is a heavy smoker as much as two packs per day per the . She is on oxygen 2 L/minute and supposed to be on that all the time, but she is not always compliant. She is also very hypertensive in their emergency room with a blood pressure as high as 227/94 from my review of their records. REVIEW OF SYSTEMS: Unable to be obtained. PAST MEDICAL HISTORY: End-stage renal disease, COPD, type 2 diabetes, obesity, CHF, tobacco abuse, and hypertension. PAST SURGICAL HISTORY: Toe surgery, ear surgery, and left upper arm fistula. ALLERGIES: PENICILLIN. HOME MEDICATIONS: Amlodipine, Lyrica, vitamin D, Tylenol, carvedilol, calcium acetate, citalopram, and Tamera-Mathieu. SOCIAL HISTORY: No alcohol, but does smoke heavily and is . FAMILY HISTORY: Unable to be obtained. LABORATORY STUDIES: Outside labs that are pertinent: White blood cell count 12.6, hemoglobin 11.3, and platelets 258. Sodium 130, potassium 9.2, chloride 94, glucose 425, BUN 106, creatinine 9.6. Albumin 3.7, AST 52, ALT 64, alkaline phosphatase is 219. BNP 2300. Lactate 0.6. Repeat potassium was 8.4. PHYSICAL EXAMINATION: VITAL SIGNS: Per nursing flow sheet. GENERAL: No acute distress. NEURO: Sedated. Pupils equal. ENT: Normocephalic, atraumatic. A 7.[address]. History And Physical [address] [address] NAME: LILLI COVINGTON : 58 STATUS : ADM IN [facility]#: [id number] AGE: 56 ADM/REG DATE : 01/20/17 MR#: [id number] REPORT SERV DATE: 01/20/17 DICTATED BY: LUKE BECKER DATE: 01/20/17 REPORT STATUS : Draft TRANSCRIBED BY: COMFORT DATE: 01/20/17 NECK: Trachea midline. HEART: Regular rate and rhythm. No murmurs. LUNGS: Clear anteriorly, currently on the ventilator with settings reviewed. GI: Obese, soft, nontender, nondistended. EXTREMITIES: No significant edema. : Walker catheter is in place. ASSESSMENT: 1. Acute hypoxic respiratory failure. 2. Hyperkalemia with EKG changes. 3. Volume overload. 4. Acute pulmonary edema. 5. End-stage renal disease. 6. Chronic obstructive pulmonary disease. 7. Type 2 diabetes. 8. Congestive heart failure. 9. Tobacco abuse. PLAN: 1. Neuro: We will let sedation wear off, but we can put her on Precedex as needed for sedation. We will leave off narcotics and paralytics for now. 2. Cardiac: The patient does have a history of heart failure. Current blood pressure is mildly hypertensive, but she was really hypertensive at the outside facility. We will get updated home medication list and reconcile her cardiac medicines along with her other medicines as appropriate. Cardiac markers also will be checked and constant EKG monitoring will be done. We are also checking labs, particularly her potassium level which was causing EKG arrhythmia. 3. Pulmonary: Currently on the ventilator. Initially at a set rate of 10 and she was only breathing 10 breaths per minute. This is the set rate that the patient apparently came over on. I increased her rate and got ABG immediately before the patient had time to equilibrate and it did show that the patient was acidotic with a low pH and an elevated pCO2. We will leave her at a respiratory rate of 18 for now and get another blood gas in one hour. We will get a chest x-ray to confirm ET tube placement and also check the severity of the pulmonary edema. We are getting bronchodilators to administer to the patient as well. 4. Gastrointestinal: Patient will be n.p.o. for now. Have OG-tube in place and get a KUB. 5. Genitourinary: The patient is going to be getting dialysis and we will also check her underlying electrolytes as well. 6. Endocrine: The patient is diabetic, so we will put patient on a level 2 sliding scale for now and get glucose checks every 6 hours. 7. Infection/lymph: No signs of active infection at this point. We will hold off on any antibiotics. Procalcitonin is pending. 8. Skin: Small ulcer on her backside which is being noted and the appropriate wound care to be done. 35 minutes of critical care time. History And Physical [address] [address] NAME: LILLI COVINGTON : 58 STATUS : ADM IN [facility]#: [id number] AGE: 56 ADM/REG DATE : 01/20/17 MR#: [id number] REPORT SERV DATE: 01/20/17 DICTATED BY: LUKE BECKER DATE: 01/20/17 REPORT STATUS : Draft TRANSCRIBED BY: MODL DATE: 01/20/17 CEP/MODCali Luke Becker DO / [id number] CC: Luke Becker DO
[2017-01-20 14:58] LABS: INSTRUMENT SERIAL # 35151; PCO2 (CO2 TENSION) 69 MMHG (35-45); pH 7.14 (7.37-7.43)
[2017-01-20 14:59] LABS: ALLENS TEST Pos; BE (BASE EXCESS) -6.8 MEQ/L (0 +/- 2.5); CARBOXYHEMOGLOBIN 2.1 % (0-3); HCO3 (ACTUAL BICARBONATE) 23.1 MEQ/L (23-27); HEMOBLOGIN CONTENT 11.9 G/DL (12-16); METHEMOGLOBIN 0.5 % (0-3); O2 CONTENT 16.7 VOL% (18-24); PO2 (O2 TENSION) 231 MMHG (79-93); SAMPLE Arterial
[2017-01-20 16:30] LABS: A/G RATIO 0.9 (0.7-1.9); ALBUMIN 3.6 G/DL (3.5-5.0); ALKALINE PHOSPHATASE 232 U/L (45-117); CALCIUM, SERUM 7.8 MG/DL (8.5-10.4); CHLORIDE, SERUM 95 MMOL/L (96-112); CO2 (CARBON DIOXIDE) 23 MMOL/L (24-34); CPK 171 U/L (0-200); FREE T4 0.56 NG/DL (0.76-1.46); GFR AFRICAN AMERICAN 4 ML/MIN (>=60); GFR NON AFRICAN AMERICAN 4 ML/MIN (>=60); GLOBULIN 4.1 G/DL (2.5-4.1); GLUCOSE, SERUM 288 MG/DL (60-99); PHOSPHORUS, SERUM 8.2 MG/DL (2.5-4.5); SGOT(AST) 55 U/L (5-40); SGPT(ALT) 62 U/L (5-65); SODIUM, SERUM 132 MMOL/L (135-148); TOTAL BILIRUBIN 0.4 MG/DL (0-1.2); TOTAL PROTEIN 7.7 G/DL (6.0-8.5); TROPONIN I 0.02 NG/ML (<0.05)
[2017-01-20 16:31] LABS: BUN (BLOOD UREA NITROGEN) 108 MG/DL (6-23); CK-MB 4.4 NG/ML; POTASSIUM, SERUM 7.9 MMOL/L (3.5-5.3)
[2017-01-20 17:20] LABS: PROCALCITONIN <0.05 ng/mL (<0.5)
[2017-01-20 17:29] LABS: INSTRUMENT SERIAL # 8083
[2017-01-20 17:30] LABS: ALLENS TEST Pos; BE (BASE EXCESS) -1.6 MEQ/L (0 +/- 2.5); CARBOXYHEMOGLOBIN 0.5 % (0-3); HCO3 (ACTUAL BICARBONATE) 25.4 MEQ/L (23-27); METHEMOGLOBIN 0.3 % (0-3); MODE CMV; O2 CONTENT 17.1 VOL% (18-24); PCO2 (CO2 TENSION) 53 MMHG (35-45); PO2 (O2 TENSION) 233 MMHG (79-93); SAMPLE Arterial; TIDAL VOLUME 500 ML
[2017-01-20] MEDS ORDERED: ACET500CAP PO (18:24)
[2017-01-20] MEDS ORDERED: NORV10 PO (18:24)
[2017-01-20] MEDS ORDERED: RENA-VITE PO (18:24)
[2017-01-20] MEDS ORDERED: LYRICA75 PO (18:24)
[2017-01-20] MEDS ORDERED: VITD PO (18:25)
[2017-01-20] MEDS ORDERED: *UNABLE3 (18:25)
[2017-01-20] MEDS ORDERED: CELEXA20 PO (18:25)
[2017-01-20] MEDS ORDERED: COREG12 PO (18:25)
[2017-01-20] MEDS ORDERED: PHOSLO PO (18:25)
[2017-01-21 00:54] LABS: CALCIUM, SERUM 8.2 MG/DL (8.5-10.4); CHLORIDE, SERUM 99 MMOL/L (96-112); SODIUM, SERUM 136 MMOL/L (135-148)
[2017-01-21 00:55] LABS: BUN (BLOOD UREA NITROGEN) 45 MG/DL (6-23); CO2 (CARBON DIOXIDE) 29 MMOL/L (24-34); CREATININE 5.61 MG/DL (0.55-1.02); GFR AFRICAN AMERICAN 9 ML/MIN (>=60); GFR NON AFRICAN AMERICAN 8 ML/MIN (>=60); GLUCOSE, SERUM 414 MG/DL (60-99); PHOSPHORUS, SERUM 6.2 MG/DL (2.5-4.5); POTASSIUM, SERUM 6.2 MMOL/L (3.5-5.3)
[2017-01-21 03:52] LABS: ALLENS TEST Pos; BE (BASE EXCESS) 1.6 MEQ/L (0 +/- 2.5); CARBOXYHEMOGLOBIN 0.6 % (0-3); HCO3 (ACTUAL BICARBONATE) 28.3 MEQ/L (23-27); HEMOBLOGIN CONTENT 11.9 G/DL (12-16); INSTRUMENT SERIAL # 35151; METHEMOGLOBIN 0.2 % (0-3); MODE CMV; O2 CONTENT 15.6 VOL% (18-24); OPERATOR ID 19993; PCO2 (CO2 TENSION) 55 MMHG (35-45); PO2 (O2 TENSION) 77 MMHG (79-93); SAMPLE Arterial; TIDAL VOLUME 500 ML; pH 7.33 (7.37-7.43)
[2017-01-21 05:17] LABS: BASOPHILS 0.2 %; BASOPHILS ABSOLUTE 0.02 10/3/uL (0.0-0.16); EOSINOPHILS 0.2 %; EOSINOPHILS ABSOLUTE 0.02 10/3/uL (0.0-0.53); HEMOGLOBIN 11.7 g/dL (12.0-16.0); IMMATURE GRANULOCYTES 0.4 %; IMMATURE GRANULOCYTES ABSOLUTE 0.05 10/3/uL (0.0-0.11); MEAN CORPUS HGB CONC 31.6 g/dL (32.0-36.0); MEAN CORPUSCULAR HEMOGLOB 28.1 pg (26.0-34.0); MEAN CORPUSCULAR VOLUME 88.9 fL (80-100); MEAN PLATELET VOLUME 10.8 fL (9.2-13.0); MONOCYTES 9.3 %; MONOCYTES ABSOLUTE 1.06 10/3/uL (0.21-1.20); NEUTROPHILS 75.9 %; NEUTROPHILS ABSOLUTE 8.68 10/3/uL (2.02-8.40); PLATELET COUNT 229 10/3/uL (150-400); RBC DISTRIBUTION WIDTH 16.4 % (12.0-16.0); RED CELL COUNT 4.16 10/6/uL (4.0-5.6); WHITE BLOOD CELLS 11.4 10/3/uL (4.5-10.5)
[2017-01-21 05:18] LABS: MANUAL DIFF NO %
[2017-01-21 05:45] LABS: A/G RATIO 0.8 (0.7-1.9); ALBUMIN 3.2 G/DL (3.5-5.0); CHLORIDE, SERUM 104 MMOL/L (96-112); CO2 (CARBON DIOXIDE) 25 MMOL/L (24-34); GLOBULIN 3.9 G/DL (2.5-4.1); PHOSPHORUS, SERUM 5.9 MG/DL (2.5-4.5); PREALBUMIN 29.3 MG/DL (17.0-43.0); SGOT(AST) 50 U/L (5-40); SGPT(ALT) 64 U/L (5-65); TOTAL BILIRUBIN 0.3 MG/DL (0-1.2); TOTAL PROTEIN 7.1 G/DL (6.0-8.5)
[2017-01-21 05:46] LABS: ALKALINE PHOSPHATASE 216 U/L (45-117); BUN (BLOOD UREA NITROGEN) 49 MG/DL (6-23); CREATININE 6.35 MG/DL (0.55-1.02); GFR AFRICAN AMERICAN 8 ML/MIN (>=60); GFR NON AFRICAN AMERICAN 7 ML/MIN (>=60); GLUCOSE, SERUM 202 MG/DL (60-99); POTASSIUM, SERUM 4.5 MMOL/L (3.5-5.3); SODIUM, SERUM 144 MMOL/L (135-148)
[2017-01-21] MEDS ORDERED: EMLA CREAM TOP (10:00)
[2017-01-21] MEDS ORDERED: LANTUS (10:00)
[2017-01-21] MEDS ORDERED: ZOFRAN ODT4 MG PO (10:01)
[2017-01-21] MEDS ORDERED: ASPIRIN (10:01)
[2017-01-22 04:35] LABS: BASOPHILS 0.2 %; BASOPHILS ABSOLUTE 0.03 10/3/uL (0.0-0.16); EOSINOPHILS 2.6 %; EOSINOPHILS ABSOLUTE 0.33 10/3/uL (0.0-0.53); HEMATOCRIT 40.1 % (36.0-48.0); HEMOGLOBIN 12.6 g/dL (12.0-16.0); IMMATURE GRANULOCYTES 0.3 %; IMMATURE GRANULOCYTES ABSOLUTE 0.04 10/3/uL (0.0-0.11); LYMPHOCYTES 15.7 %; MEAN CORPUS HGB CONC 31.4 g/dL (32.0-36.0); MEAN CORPUSCULAR HEMOGLOB 28.1 pg (26.0-34.0); MEAN CORPUSCULAR VOLUME 89.5 fL (80-100); MEAN PLATELET VOLUME 10.6 fL (9.2-13.0); MONOCYTES 10.1 %; MONOCYTES ABSOLUTE 1.28 10/3/uL (0.21-1.20); NEUTROPHILS 71.1 %; NEUTROPHILS ABSOLUTE 9.02 10/3/uL (2.02-8.40); PLATELET COUNT 237 10/3/uL (150-400); RBC DISTRIBUTION WIDTH 16.9 % (12.0-16.0); RED CELL COUNT 4.48 10/6/uL (4.0-5.6); WHITE BLOOD CELLS 12.7 10/3/uL (4.5-10.5)
[2017-01-22 04:41] LABS: MANUAL DIFF NO %
[2017-01-22 04:54] LABS: BUN (BLOOD UREA NITROGEN) 34 MG/DL (6-23); CALCIUM, SERUM 8.6 MG/DL (8.5-10.4); CHLORIDE, SERUM 102 MMOL/L (96-112); CO2 (CARBON DIOXIDE) 28 MMOL/L (24-34); CREATININE 5.31 MG/DL (0.55-1.02); GFR AFRICAN AMERICAN 10 ML/MIN (>=60); GFR NON AFRICAN AMERICAN 8 ML/MIN (>=60); GLUCOSE, SERUM 98 MG/DL (60-99); PHOSPHORUS, SERUM 6.9 MG/DL (2.5-4.5); POTASSIUM, SERUM 3.9 MMOL/L (3.5-5.3); SODIUM, SERUM 141 MMOL/L (135-148); ULTRASENSITIVE TSH 0.901 MCIU/ML (0.358-3.740)
[2017-01-23 04:01] LABS: BASOPHILS 0.2 %; BASOPHILS ABSOLUTE 0.02 10/3/uL (0.0-0.16); EOSINOPHILS 2.8 %; EOSINOPHILS ABSOLUTE 0.25 10/3/uL (0.0-0.53); HEMATOCRIT 39.9 % (36.0-48.0); HEMOGLOBIN 12.6 g/dL (12.0-16.0); IMMATURE GRANULOCYTES 0.5 %; IMMATURE GRANULOCYTES ABSOLUTE 0.04 10/3/uL (0.0-0.11); LYMPHOCYTES 17.7 %; LYMPHOCYTES ABSOLUTE 1.56 10/3/uL (0.67-4.30); MEAN CORPUS HGB CONC 31.6 g/dL (32.0-36.0); MEAN CORPUSCULAR HEMOGLOB 28.4 pg (26.0-34.0); MEAN CORPUSCULAR VOLUME 89.9 fL (80-100); MEAN PLATELET VOLUME 10.9 fL (9.2-13.0); MONOCYTES 10.3 %; MONOCYTES ABSOLUTE 0.91 10/3/uL (0.21-1.20); NEUTROPHILS 68.5 %; NEUTROPHILS ABSOLUTE 6.04 10/3/uL (2.02-8.40); PLATELET COUNT 204 10/3/uL (150-400); RBC DISTRIBUTION WIDTH 16.9 % (12.0-16.0); RED CELL COUNT 4.44 10/6/uL (4.0-5.6); WHITE BLOOD CELLS 8.8 10/3/uL (4.5-10.5)
[2017-01-23 04:02] LABS: MANUAL DIFF NO %
[2017-01-23 04:53] LABS: ALBUMIN 3.3 G/DL (3.5-5.0); CALCIUM, SERUM 8.6 MG/DL (8.5-10.4); CHLORIDE, SERUM 102 MMOL/L (96-112); CO2 (CARBON DIOXIDE) 25 MMOL/L (24-34); CREATININE 4.96 MG/DL (0.55-1.02); GFR AFRICAN AMERICAN 10 ML/MIN (>=60); GFR NON AFRICAN AMERICAN 9 ML/MIN (>=60); POTASSIUM, SERUM 4.2 MMOL/L (3.5-5.3); SODIUM, SERUM 139 MMOL/L (135-148)
[2017-01-23 04:56] LABS: BUN (BLOOD UREA NITROGEN) 28 MG/DL (6-23); FOLATE 32.9 NG/ML (>5.2); GLUCOSE, SERUM 262 MG/DL (60-99); PHOSPHORUS, SERUM 5.5 MG/DL (2.5-4.5)
[2017-01-23 05:06] LABS: PROCALCITONIN 0.12 ng/mL (<0.5)
[2017-01-24 04:11] LABS: BASOPHILS 0.2 %; BASOPHILS ABSOLUTE 0.02 10/3/uL (0.0-0.16); EOSINOPHILS ABSOLUTE 0.32 10/3/uL (0.0-0.53); HEMATOCRIT 38.2 % (36.0-48.0); HEMOGLOBIN 12.2 g/dL (12.0-16.0); IMMATURE GRANULOCYTES 1.2 %; LYMPHOCYTES 14.3 %; LYMPHOCYTES ABSOLUTE 1.16 10/3/uL (0.67-4.30); MEAN CORPUS HGB CONC 31.9 g/dL (32.0-36.0); MEAN CORPUSCULAR HEMOGLOB 28.2 pg (26.0-34.0); MEAN CORPUSCULAR VOLUME 88.2 fL (80-100); MEAN PLATELET VOLUME 10.5 fL (9.2-13.0); MONOCYTES 15.3 %; MONOCYTES ABSOLUTE 1.24 10/3/uL (0.21-1.20); NEUTROPHILS ABSOLUTE 5.25 10/3/uL (2.02-8.40); PLATELET COUNT 214 10/3/uL (150-400); RBC DISTRIBUTION WIDTH 16.7 % (12.0-16.0); RED CELL COUNT 4.33 10/6/uL (4.0-5.6); WHITE BLOOD CELLS 8.1 10/3/uL (4.5-10.5)
[2017-01-24 04:12] LABS: MANUAL DIFF NO %
[2017-01-24 04:38] LABS: A/G RATIO 0.8 (0.7-1.9); ALBUMIN 3.3 G/DL (3.5-5.0); CALCIUM, SERUM 8.4 MG/DL (8.5-10.4); CHLORIDE, SERUM 103 MMOL/L (96-112); CO2 (CARBON DIOXIDE) 21 MMOL/L (24-34); GLOBULIN 4.2 G/DL (2.5-4.1); GLUCOSE, SERUM 266 MG/DL (60-99); POTASSIUM, SERUM 3.8 MMOL/L (3.5-5.3); SGOT(AST) 29 U/L (5-40); SGPT(ALT) 40 U/L (5-65); SODIUM, SERUM 140 MMOL/L (135-148); TOTAL BILIRUBIN 0.4 MG/DL (0-1.2); TOTAL PROTEIN 7.5 G/DL (6.0-8.5)
[2017-01-24 04:39] LABS: ALKALINE PHOSPHATASE 181 U/L (45-117); BUN (BLOOD UREA NITROGEN) 44 MG/DL (6-23); CREATININE 7.76 MG/DL (0.55-1.02); DIRECT BILIRUBIN < 0.1 MG/DL (0.0-0.4); GFR AFRICAN AMERICAN 6 ML/MIN (>=60); GFR NON AFRICAN AMERICAN 5 ML/MIN (>=60); INDIRECT BILIRUBIN(NOT ORDER) 0.3 MG/DL (0.1-0.9); PHOSPHORUS, SERUM 7.6 MG/DL (2.5-4.5)
[2017-01-24 16:35] LABS: GLUCOSE CSF 147 MG/DL (45-70); TOTAL PROTEIN, CSF 58.3 MG/DL (15-45)
[2017-01-24 17:02] LABS: CSF BASO 0 % (NO REF RANGE); CSF EOS 0 % (0-1); CSF LYMPH (NOT ORD) 13 % (28-96); CSF MONO 87 % (16-56); CSF SEGS (NOT ORD) 0 % (0-7); CSF WBC (NOT ORD) 1 /uL (0-10)
[2017-01-24 17:06] LABS: CSF COLOR (NOT ORD) COLORLESS (COLORLESS); CSF RBC (NOT ORD) 6 MM3 (NO REFERENCE)
[2017-01-24 17:07] LABS: CSF APPEARANCE (NOT ORD) CLEAR (CLEAR); CSF XANTHROCHROMIA NEG (NEG)
[2017-01-25 06:12] LABS: BASOPHILS 0.5 %; BASOPHILS ABSOLUTE 0.05 10/3/uL (0.0-0.16); EOSINOPHILS 4.2 %; EOSINOPHILS ABSOLUTE 0.39 10/3/uL (0.0-0.53); HEMOGLOBIN 12.9 g/dL (12.0-16.0); IMMATURE GRANULOCYTES 1.3 %; IMMATURE GRANULOCYTES ABSOLUTE 0.12 10/3/uL (0.0-0.11); LYMPHOCYTES 16.4 %; LYMPHOCYTES ABSOLUTE 1.52 10/3/uL (0.67-4.30); MANUAL DIFF NO %; MEAN CORPUS HGB CONC 33.1 g/dL (32.0-36.0); MEAN CORPUSCULAR HEMOGLOB 28.5 pg (26.0-34.0); MEAN CORPUSCULAR VOLUME 86.3 fL (80-100); MEAN PLATELET VOLUME 10.4 fL (9.2-13.0); MONOCYTES 15.9 %; MONOCYTES ABSOLUTE 1.48 10/3/uL (0.21-1.20); NEUTROPHILS 61.7 %; NEUTROPHILS ABSOLUTE 5.72 10/3/uL (2.02-8.40); PLATELET COUNT 238 10/3/uL (150-400); RBC DISTRIBUTION WIDTH 17.2 % (12.0-16.0); RED CELL COUNT 4.52 10/6/uL (4.0-5.6); WHITE BLOOD CELLS 9.3 10/3/uL (4.5-10.5)
[2017-01-25 06:28] LABS: ALBUMIN 3.5 G/DL (3.5-5.0); BUN (BLOOD UREA NITROGEN) 33 MG/DL (6-23); CALCIUM, SERUM 9.1 MG/DL (8.5-10.4); CHLORIDE, SERUM 103 MMOL/L (96-112); CO2 (CARBON DIOXIDE) 23 MMOL/L (24-34); CREATININE 6.44 MG/DL (0.55-1.02); GFR AFRICAN AMERICAN 8 ML/MIN (>=60); GFR NON AFRICAN AMERICAN 7 ML/MIN (>=60); GLUCOSE, SERUM 167 MG/DL (60-99); PHOSPHORUS, SERUM 6.7 MG/DL (2.5-4.5); POTASSIUM, SERUM 4.3 MMOL/L (3.5-5.3); SODIUM, SERUM 139 MMOL/L (135-148)
[2017-01-25 06:42] LABS: DILANTIN (PHENYTOIN) 13.1 MCG/ML (10.0-20.0)
[2017-01-25 14:57] LABS: (1,3)-BETA-D-GLUCAN 160 pg/mL (()); (1,3)-BETA-D-GLUCAN INTERP Positive (())
[2017-01-26 06:34] LABS: BUN (BLOOD UREA NITROGEN) 45 MG/DL (6-23); CALCIUM, SERUM 8.7 MG/DL (8.5-10.4); CHLORIDE, SERUM 97 MMOL/L (96-112); CO2 (CARBON DIOXIDE) 22 MMOL/L (24-34); CREATININE 8.26 MG/DL (0.55-1.02); GFR AFRICAN AMERICAN 6 ML/MIN (>=60); GFR NON AFRICAN AMERICAN 5 ML/MIN (>=60); GLUCOSE, SERUM 116 MG/DL (60-99); POTASSIUM, SERUM 4.9 MMOL/L (3.5-5.3); SODIUM, SERUM 132 MMOL/L (135-148)
[2017-01-26 06:42] LABS: BASOPHILS 0.7 %; BASOPHILS ABSOLUTE 0.06 10/3/uL (0.0-0.16); EOSINOPHILS 5.5 %; EOSINOPHILS ABSOLUTE 0.44 10/3/uL (0.0-0.53); HEMATOCRIT 39.6 % (36.0-48.0); HEMOGLOBIN 13.2 g/dL (12.0-16.0); IMMATURE GRANULOCYTES 3.2 %; IMMATURE GRANULOCYTES ABSOLUTE 0.26 10/3/uL (0.0-0.11); LYMPHOCYTES 29.4 %; LYMPHOCYTES ABSOLUTE 2.36 10/3/uL (0.67-4.30); MEAN CORPUS HGB CONC 33.3 g/dL (32.0-36.0); MEAN CORPUSCULAR HEMOGLOB 28.4 pg (26.0-34.0); MEAN CORPUSCULAR VOLUME 85.3 fL (80-100); MEAN PLATELET VOLUME 10.3 fL (9.2-13.0); MONOCYTES 12.7 %; MONOCYTES ABSOLUTE 1.02 10/3/uL (0.21-1.20); NEUTROPHILS 48.5 %; PLATELET COUNT 223 10/3/uL (150-400); RBC DISTRIBUTION WIDTH 17.2 % (12.0-16.0); RED CELL COUNT 4.64 10/6/uL (4.0-5.6)
[2017-01-26 06:43] LABS: MANUAL DIFF NO %
[2017-01-27 09:53] LABS: ALBUMIN 2.9 G/DL (3.5-5.0); CHLORIDE, SERUM 93 MMOL/L (96-112); PHOSPHORUS, SERUM 7.3 MG/DL (2.5-4.5); POTASSIUM, SERUM 5.2 MMOL/L (3.5-5.3); SODIUM, SERUM 126 MMOL/L (135-148)
[2017-01-27 09:54] LABS: BUN (BLOOD UREA NITROGEN) 63 MG/DL (6-23); CALCIUM, SERUM 7.7 MG/DL (8.5-10.4); CO2 (CARBON DIOXIDE) 14 MMOL/L (24-34); CREATININE 9.99 MG/DL (0.55-1.02); GFR AFRICAN AMERICAN 4 ML/MIN (>=60); GFR NON AFRICAN AMERICAN 4 ML/MIN (>=60); GLUCOSE, SERUM 184 MG/DL (60-99)
[2017-01-27 10:51] LABS: THYROID PEROXIDASE AUTO AB 1.6 IU/mL (0.0-9.0)
[2017-01-27 10:54] LABS: BASOPHILS 0.3 %; BASOPHILS ABSOLUTE 0.02 10/3/uL (0.0-0.16); EOSINOPHILS 7.6 %; EOSINOPHILS ABSOLUTE 0.45 10/3/uL (0.0-0.53); HEMATOCRIT 33.1 % (36.0-48.0); IMMATURE GRANULOCYTES 3.5 %; IMMATURE GRANULOCYTES ABSOLUTE 0.21 10/3/uL (0.0-0.11); LYMPHOCYTES 27.4 %; LYMPHOCYTES ABSOLUTE 1.63 10/3/uL (0.67-4.30); MANUAL DIFF NO %; MEAN CORPUS HGB CONC 33.2 g/dL (32.0-36.0); MEAN CORPUSCULAR HEMOGLOB 27.9 pg (26.0-34.0); MEAN PLATELET VOLUME 10.1 fL (9.2-13.0); MONOCYTES 10.8 %; MONOCYTES ABSOLUTE 0.64 10/3/uL (0.21-1.20); NEUTROPHILS 50.4 %; NEUTROPHILS ABSOLUTE 2.99 10/3/uL (2.02-8.40); PLATELET COUNT 231 10/3/uL (150-400); RBC DISTRIBUTION WIDTH 16.6 % (12.0-16.0); RED CELL COUNT 3.94 10/6/uL (4.0-5.6); WHITE BLOOD CELLS 5.9 10/3/uL (4.5-10.5)
[2017-01-27 12:02] LABS: THYROGLOBULIN AUTO ANTIBODY <0.9 IU/mL (0.0-4.0)
[2017-01-27 16:05] LABS: BUN (BLOOD UREA NITROGEN) 29 MG/DL (6-23); CALCIUM, SERUM 8.5 MG/DL (8.5-10.4); CHLORIDE, SERUM 98 MMOL/L (96-112); CO2 (CARBON DIOXIDE) 24 MMOL/L (24-34); CREATININE 6.04 MG/DL (0.55-1.02); GFR AFRICAN AMERICAN 8 ML/MIN (>=60); GFR NON AFRICAN AMERICAN 7 ML/MIN (>=60); GLUCOSE, SERUM 172 MG/DL (60-99); POTASSIUM, SERUM 4.8 MMOL/L (3.5-5.3); SODIUM, SERUM 135 MMOL/L (135-148)
[2017-01-28 05:48] LABS: BASOPHILS 0.5 %; BASOPHILS ABSOLUTE 0.04 10/3/uL (0.0-0.16); EOSINOPHILS 4.7 %; EOSINOPHILS ABSOLUTE 0.36 10/3/uL (0.0-0.53); HEMOGLOBIN 12.4 g/dL (12.0-16.0); IMMATURE GRANULOCYTES 2.2 %; IMMATURE GRANULOCYTES ABSOLUTE 0.17 10/3/uL (0.0-0.11); LYMPHOCYTES 26.6 %; LYMPHOCYTES ABSOLUTE 2.02 10/3/uL (0.67-4.30); MEAN CORPUS HGB CONC 33.8 g/dL (32.0-36.0); MEAN CORPUSCULAR HEMOGLOB 28.6 pg (26.0-34.0); MEAN CORPUSCULAR VOLUME 84.6 fL (80-100); MEAN PLATELET VOLUME 10.1 fL (9.2-13.0); MONOCYTES 10.4 %; MONOCYTES ABSOLUTE 0.79 10/3/uL (0.21-1.20); NEUTROPHILS 55.6 %; PLATELET COUNT 262 10/3/uL (150-400); RBC DISTRIBUTION WIDTH 17.2 % (12.0-16.0); RED CELL COUNT 4.34 10/6/uL (4.0-5.6); WHITE BLOOD CELLS 7.6 10/3/uL (4.5-10.5)
[2017-01-28 05:57] LABS: CALCIUM, SERUM 8.1 MG/DL (8.5-10.4); CHLORIDE, SERUM 100 MMOL/L (96-112); CO2 (CARBON DIOXIDE) 22 MMOL/L (24-34); POTASSIUM, SERUM 5.2 MMOL/L (3.5-5.3); SODIUM, SERUM 135 MMOL/L (135-148)
[2017-01-28 05:58] LABS: BUN (BLOOD UREA NITROGEN) 45 MG/DL (6-23); CREATININE 7.59 MG/DL (0.55-1.02); GFR AFRICAN AMERICAN 6 ML/MIN (>=60); GFR NON AFRICAN AMERICAN 5 ML/MIN (>=60); GLUCOSE, SERUM 224 MG/DL (60-99)
[2017-01-28 06:07] LABS: HEMATOCRIT 36.7 % (36.0-48.0); MANUAL DIFF NO %
[2017-01-28] MEDS ORDERED: VIMPAT100 MG PO (15:23)
[2017-01-28] MEDS ORDERED: ASAB PO (15:23)
[2017-01-28] MEDS ORDERED: D100 PO (15:24)
[2017-01-28] MEDS ORDERED: LANTUS SC (15:26)
[2017-01-28 15:58] LABS: IGG INDEX 0.49 (0.25-0.75)
[2017-01-28 20:02] LABS: MYELIN BASIC PROTEIN 2.41 ng/mL (0.00-5.50)
[2017-01-29 09:00] LABS: BASOPHILS 0.4 %; BASOPHILS ABSOLUTE 0.03 10/3/uL (0.0-0.16); EOSINOPHILS 7.7 %; HEMATOCRIT 35.2 % (36.0-48.0); HEMOGLOBIN 11.8 g/dL (12.0-16.0); IMMATURE GRANULOCYTES 1.9 %; IMMATURE GRANULOCYTES ABSOLUTE 0.15 10/3/uL (0.0-0.11); LYMPHOCYTES ABSOLUTE 2.04 10/3/uL (0.67-4.30); MEAN CORPUS HGB CONC 33.5 g/dL (32.0-36.0); MEAN CORPUSCULAR HEMOGLOB 28.6 pg (26.0-34.0); MEAN CORPUSCULAR VOLUME 85.4 fL (80-100); MEAN PLATELET VOLUME 9.8 fL (9.2-13.0); MONOCYTES 13.3 %; MONOCYTES ABSOLUTE 1.04 10/3/uL (0.21-1.20); NEUTROPHILS 50.7 %; NEUTROPHILS ABSOLUTE 3.98 10/3/uL (2.02-8.40); PLATELET COUNT 292 10/3/uL (150-400); RBC DISTRIBUTION WIDTH 17.3 % (12.0-16.0); RED CELL COUNT 4.12 10/6/uL (4.0-5.6); WHITE BLOOD CELLS 7.8 10/3/uL (4.5-10.5)
[2017-01-29 09:04] LABS: MANUAL DIFF NO %
[2017-01-29 09:18] LABS: CALCIUM, SERUM 8.1 MG/DL (8.5-10.4); CHLORIDE, SERUM 100 MMOL/L (96-112); CO2 (CARBON DIOXIDE) 21 MMOL/L (24-34); PHOSPHORUS, SERUM 7.4 MG/DL (2.5-4.5); POTASSIUM, SERUM 5.5 MMOL/L (3.5-5.3); SODIUM, SERUM 136 MMOL/L (135-148)
[2017-01-29 09:19] LABS: BUN (BLOOD UREA NITROGEN) 58 MG/DL (6-23); GFR AFRICAN AMERICAN 4 ML/MIN (>=60); GFR NON AFRICAN AMERICAN 4 ML/MIN (>=60); GLUCOSE, SERUM 149 MG/DL (60-99)
== END 2017-01-29 17:42 | disposition home health service (06) | DRG 288 ==
LOC: CCU 14:34 → 2SO 01-24 18:14
PROVIDERS: Hospitalist; Internal Medicine Critical Care Medicine; Internal Medicine Nephrology; Internal Medicine Pulmonary Disease; Nurse Practitioner Family; Psychiatry & Neurology Neurology
PROC: 5A09457 Assistance with Respiratory Ventilation, 24-96 Consecutive Hours, Continuous Positive Airway Pressure (ICD-10-PCS; principal; 2017-01-20)
PROC: 5A1945Z Respiratory Ventilation, 24-96 Consecutive Hours (ICD-10-PCS; 2017-01-20)
PROC: 5A1D60Z (ICD-10-PCS; 2017-01-20)
PROC: 0BH17EZ Insertion of Endotracheal Airway into Trachea, Via Natural or Artificial Opening (ICD-10-PCS; 2017-01-20)
PROC: B01B1ZZ Fluoroscopy of Spinal Cord using Low Osmolar Contrast (ICD-10-PCS; 2017-01-24)
PROC: 009U3ZX Drainage of Spinal Canal, Percutaneous Approach, Diagnostic (ICD-10-PCS; 2017-01-24)
DX: I33.0 Acute and subacute infective endocarditis (principal); J96.21 Acute and chronic respiratory failure with hypoxia; G93.41 Metabolic encephalopathy; L89.159 Pressure ulcer of sacral region, unspecified stage; I13.0 Hypertensive heart and chronic kidney disease with heart failure and stage 1 through stage 4 chronic kidney disease, or unspecified chronic kidney disease; N25.81 Secondary hyperparathyroidism of renal origin; N18.6 End stage renal disease; E87.2 Acidosis; I50.22 Chronic systolic (congestive) heart failure; E87.1 Hypo-osmolality and hyponatremia; E87.5 Hyperkalemia; I48.0 Paroxysmal atrial fibrillation; E78.5 Hyperlipidemia, unspecified; J44.9 Chronic obstructive pulmonary disease, unspecified; E11.65 Type 2 diabetes mellitus with hyperglycemia; E11.51 Type 2 diabetes mellitus with diabetic peripheral angiopathy without gangrene; E11.22 Type 2 diabetes mellitus with diabetic chronic kidney disease; F17.210 Nicotine dependence, cigarettes, uncomplicated; D63.1 Anemia in chronic kidney disease; E66.9 Obesity, unspecified; K52.9 Noninfective gastroenteritis and colitis, unspecified; F32.9 Major depressive disorder, single episode, unspecified; Z88.0 Allergy status to penicillin; Z99.2 Dependence on renal dialysis; Z98.890 Other specified postprocedural states; Z89.412 Acquired absence of left great toe; Z99.81 Dependence on supplemental oxygen; Z86.73 Personal history of transient ischemic attack (TIA), and cerebral infarction without residual deficits
CPT/HCPCS: 31720; 36569; 36600; 62270; 70450; 70551; 71010; 74000; 77003; 80048; 80053; 80069; 80076; 80185; 80202; 82040; 82042; 82140; 82550; 82553; 82607; 82746; 82784; 82784-59; 82805; 82945; 82947; 82962; 83036; 83735; 83873; 84100; 84132; 84134; 84145; 84157; 84439; 84443; 84484; 85025; 86376; 86592; 86800; 87015; 87040; 87070; 87102; 87103; 87116; 87205; 87327; 87449; 87529; 87529-59; 87556; 87641; 88112; 89051; 92610-GN; 93005; 93306; 93312; 93320; 93325; 94002; 94003; 94640; 94667; 94668; 94770; 95816; 97116-GP; 97163-GP; 97164-GP; 97165-GO; A9270-GY; C1751; C9113; C9254; G0257; G0463; G8978-CK-GP; G8978-CM-GP; G8979-CI-GP; G8979-CL-GP; G8987-CJ-GO; G8988-CJ-GO; G8989-CJ-GO; G8996-CJ-GN; G8997-CJ-GN; G8998-CJ-GN; J0282; J0360; J0692; J3010; J3370; Q2009